=== PATIENT | male | born 1930 | race Caucasian/White ===

== ENCOUNTER 2020-02-22 14:28 | Inpatient (IN) | payer MEDICARE, OTHER ==
[2020-02-22 15:02] LABS: #Eosinphils 0.1 thou/uL (0.0-0.7); #Lymphocytes 0.9 thou/uL (1.20-3.40); #Monocytes 1.1 thou/uL (0.11-0.59); #Neutrophils 10.7 thou/uL (1.40-6.50); %Basophils 0.2 % (0.0-1.0); %Lymphocytes 7.3 % (21.0-51.0); %Monocytes 8.6 % (0.0-10.0); %Neutrophils 82.9 % (42.0-75.0); Hemoglobin 13.6 g/dL (14.0-18.0); Mean Corpuscular Volume 91.4 fL (78.0-98.0); Mean Platelet Volume 7.8 fL (7.4-10.4); Platelet Count 256 thou/uL (130-400); RBC Distribution Width 17.1 % (11.5-14.5); Red Blood Cell (RBC) Count 4.26 mill/uL (4.70-6.10); White Blood Cell (WBC) Count 12.9 thou/uL (4.8-10.8)
--- NOTE | 2020-02-22 15:15 | RAD ---
EXAM: CHEST ONE VIEW HISTORY: Atrial fibrillation with RVR. Runs of V. tach COMPARISON: None FINDINGS: Cardiac silhouette is magnified by projection. The pulmonary vasculature is within normal limits. A l arge hiatal hernia is seen in the lower mediastinum with linear densities at the left lung base probably related to atelectasis. No consolidation or pleural fluid is appreciated. Vascular calcifica tions are seen in the thoracic aorta. Incomplete visualization of a sclerotic density is seen in the proximal right humerus. IMPRESSION: 1. Large hiatal hernia with adjacent volume loss left lung base. 2. No acute cardiopulmonary process. 3. Sclerotic density proximal right humerus. Nonemergent radiographs right humerus are recommended.
[2020-02-22 15:27] LABS: ALT (SGPT) 20 U/L (8-55); AST (SGOT) 27 U/L (5-34); Albumin 3.3 g/dL (3.4-4.8); Alkaline Phosphatase 86 U/L (40-110); Anion Gap 14 mmol/L (10-20); BUN (Urea Nitrogen) 16 mg/dL (8.4-25.7); Bilirubin, Total 0.9 mg/dL (0.2-1.2); Calc. Creatinine Clearance 0 mL/min (70-130); Carbon Dioxide 20 mmol/L (23-31); Chloride 101 mmol/L (98-107); Estimated GFR-MDRD 69; Globulin 2.5 g/dL (2.4-3.5); Glucose 129 mg/dL (83-110); Potassium 4.4 mmol/L (3.5-5.1); Protein, Total 5.8 g/dL (5.8-8.1); Sodium 131 mmol/L (136-145)
[2020-02-22 15:50] LABS: Bilirubin Negative (Negative); Blood, Urine 3+ (Negative); Clarity Turbid (Clear); Glucose, Urine (Dipstick) Normal (Negative); Leukocyte 500 Leu/uL (Negative); Nitrite 2+ (Negative); Protein, Urine (Dipstick) 50 mg/dL (Neg-Trace); RBC/HPF Greater than 50 HPF (0-3); Squamous Epithelial None Seen HPF (0-3); WBC/HPF Greater than 50 HPF (0-3)
[2020-02-22 15:59] LABS: Bacteria/HPF 2+ HPF (None Seen); Yeast-Hyphae 1+ HPF (None Seen)
[2020-02-22] MEDS ORDERED: cefTRIAXone\\ROCEPHIN 2 GM VIAL ONE (16:24)
[2020-02-22 16:34] LABS: CKMB 2.6 ng/mL (0-6.6)
[2020-02-22] MEDS ORDERED: Vancomycin 1.5 GRAM/300 ML BAG 1.5 GM in Premix Bag 1 BAG IVPB SCH (17:15)
--- NOTE | 2020-02-22 18:23 | HP ---
PRIMARY CARE PHYSICIAN: Dr. Mary Gutierrez in [facility] and [facility] in [place]. CHIEF COMPLAINT: Shortness of breath. HISTORY OF PRESENT ILLNESS: The history of present illness is extremely limited as the patient may have some either early dementia or cognitive difficulties that he is unable to give me any details, but when I talked to him, he tells me that his life has been in turmoil since his and he says that his son recognized that he needed medical attention. He tells me that his son is a doctor and apparently, it sounds like had him admitted into inpatient rehab or to a intermediate facility. He says that he had noted some shortness of breath there and then they brought him to the emergency room. In the ER, he was found to be in atrial fibrillation with rapid ventricular response and he also was found to have a urinary tract infection and is being admitted for this. Apparently, he has a previous history of atrial fibrillation. He denies having any chest pain. No difficulty breathing now. No nausea, no vomiting, no abdominal pain, no dysuria or frequency. He is a bit confused. He knows where he is, but he had to look on the television screen to see the [facility] where he apparently read it off, but thinks it is the month of June, but he was correct on it being 2019. REVIEW OF SYSTEMS: Negative except for that mentioned in the history of present illness. PAST MEDICAL HISTORY: Significant for atrial fibrillation, BPH, sleep apnea, and varicella encephalitis. PAST SURGICAL HISTORY: He has had a radical prostatectomy. ALLERGIES: TO AMOXICILLIN. SOCIAL HISTORY: He is a nonsmoker and nondrinker. He is , has 2 children. FAMILY HISTORY: Negative for any heritable diseases. CURRENT MEDICATIONS: Taken from the emergency room records and include: 1. Aspirin 81 mg daily. 2. Atorvastatin 40 mg daily. 3. Clonidine 0.1 mg q.6 as needed. 4. Docusate sodium 100 mg as needed. 5. Fluoxetine 20 mg daily. 6. Lisinopril 5 mg daily. 7. Metoprolol succinate extended release 100 mg 1/2 tablet daily. 8. Flomax 0.4 mg daily. 9. Xarelto 20 mg once a day. PHYSICAL EXAMINATION: GENERAL: He is alert and oriented. He appears to be in no acute distress. He is well developed and well nourished. VITAL SIGNS: Blood pressure was 105/64, heart rate 118, respiratory rate of 18, temperature, he is afebrile. HEENT: Pupils are equal, round, and reactive. Extraocular muscles are intact. His sclerae are anicteric. Throat, no erythema, no exudates. NECK: No adenopathy. No bruits. LUNGS: Clear to auscultation. There is no wheezing. No rales. No rhonchi. CARDIOVASCULAR: His heart rate is irregular. There are no murmurs or clicks. No rubs. No S3 or S4. ABDOMEN: Soft, nontender, and nondistended. Positive for bowel sounds. No rebound. No guarding. No organomegaly. EXTREMITIES: There is no clubbing or cyanosis. No edema. NEUROLOGIC: His muscle strength is 5/5 in both his upper and lower extremities. There is no skin change, no rash. LABORATORY AND DIAGNOSTIC DATA: White blood cell count is 12.9, hemoglobin is 13.6, hematocrit is 39, and platelet count is 256. Sodium is 131, potassium is 4.4, chloride is 101, CO2 is 20, BUN is 16, creatinine is 1.02, glucose is 129. Troponin is 0.029. Urinalysis, the clarity is turbid, there was 2+ nitrites and greater than 50 wbc's. ASSESSMENT: This is a pleasant 89-year-old gentleman, who presents to the emergency room with hypotension, elevated white blood cell count, and also in atrial fibrillation and rapid ventricular response. 1. For the atrial fibrillation, his blood pressure is marginal. We will give a dose of digoxin due to his low blood pressure and reassess. 2. Urinary tract infection. He has been given a dose of Rocephin as well as vancomycin in the ER. We will continue Rocephin and follow up on the urine culture results. 3. Hypotension. This is likely due to volume depletion. We will reassess. After he has been adequately hydrated, it appears as his blood pressure has been recovering and we will need to obtain further information regarding the patient's history as it is very limited and see if this will impact further in his care. Job ID: [id number]
[2020-02-22 18:27] LABS: Troponin I Less than 0.010 ng/mL (< 0.028)
[2020-02-22] MEDS ORDERED: Digoxin 0.5 MG/2 ML AMP SLOW IVP SCH ×2 (20:00→22:00)
[2020-02-22 21:21] LABS: Troponin I Less than 0.010 ng/mL (< 0.028)
[2020-02-22] MEDS: Famotidine 20 MG TAB PO SCH (22:00)
[2020-02-22] MEDS: Atorvastatin Calcium 40 MG TAB PO SCH (22:00)
[2020-02-22 22:15] VITALS: BMI 33.2
[2020-02-23 04:24] LABS: #Basophils 0.1 thou/uL (0.0-0.2); #Eosinphils 0.5 thou/uL (0.0-0.7); #Lymphocytes 0.9 thou/uL (1.20-3.40); #Monocytes 1.2 thou/uL (0.11-0.59); #Neutrophils 8.8 thou/uL (1.40-6.50); %Basophils 0.6 % (0.0-1.0); %Eosinophils 4.4 % (0.0-10.0); %Lymphocytes 7.6 % (21.0-51.0); %Monocytes 10.2 % (0.0-10.0); %Neutrophils 77.3 % (42.0-75.0); Hemoglobin 12.3 g/dL (14.0-18.0); Mean Corpuscular HGB CONC 34.7 g/dL (32.0-36.0); Mean Corpuscular Hemoglobin 32.3 pg (27.0-31.0); Mean Platelet Volume 7.6 fL (7.4-10.4); Platelet Count 238 thou/uL (130-400); RBC Distribution Width 17.1 % (11.5-14.5); White Blood Cell (WBC) Count 11.3 thou/uL (4.8-10.8)
[2020-02-23 04:37] LABS: Anion Gap 13 mmol/L (10-20); BUN (Urea Nitrogen) 11 mg/dL (8.4-25.7); Calc. Creatinine Clearance 70 mL/min (70-130); Calcium 7.4 mg/dL (7.8-10.44); Carbon Dioxide 14 mmol/L (23-31); Chloride 107 mmol/L (98-107); Estimated GFR-MDRD 86; Glucose 98 mg/dL (83-110); Potassium 4.6 mmol/L (3.5-5.1); Sodium 129 mmol/L (136-145)
[2020-02-23] MEDS: Rivaroxaban 10 MG TAB PO SCH (06:12)
[2020-02-23] MEDS: Saccharomyces boulardii 250 MG CAP PO SCH (09:00)
[2020-02-23] MEDS: Tamsulosin HCl 0.4 MG CAP PO SCH (09:00)
[2020-02-23] MEDS: Aspirin 81 mg Enteric Coated Tablet PO SCH (09:00)
[2020-02-23] MEDS ORDERED: Prevnar 13-Val Conj/PF 0.5 ML SYRINGE IM ONE (09:00)
[2020-02-23] MEDS: Famotidine 20 MG TAB PO SCH ×2 (09:00→20:18)
--- NOTE | 2020-02-23 11:20 | PDOC.HOSPP ---
- Subjective Encounter Date: 02/23/20 Encounter Time: 10:00 Subjective: no chest pain or sob or palp is wanting to go home (came from rehab) - Objective Vital Signs & Weight: Vital Signs (12 hours) Temp Pulse Resp BP Pulse Ox 02/23/20 07:42 98.4 F 79 20 109/69 95 02/23/20 07:40 96 02/23/20 04:00 98.8 F 98 18 110/55 L 97 02/22/20 23:55 122 H Weight Weight 176 lb I&O: 02/22/20 02/23/20 02/24/20 06:59 06:59 06:59 Intake Total 100 Output Total 400 1450 Balance -400 -1350 Result Diagrams: 02/23/20 03:48 02/23/20 03:48 Hospitalist ROS - Medication Medications: Active Medications Generic Name Dose Route Start Last Admin Trade Name Freq PRN Reason Stop Dose Admin Aspirin 81 mg 02/23/20 09:00 02/23/20 09:00 Ecotrin PO 81 mg DAILY APRIL Administration Atorvastatin Calcium 40 mg 02/22/20 21:00 02/22/20 22:00 Lipitor PO 40 mg HS APRIL Administration Famotidine 20 mg 02/22/20 21:00 02/23/20 09:00 Pepcid PO 20 mg BID APRIL Administration Metoprolol Succinate 50 mg 02/23/20 09:00 02/23/20 09:00 Toprol Xl PO 50 mg DAILY APRIL Administration Rivaroxaban 20 mg 02/23/20 06:00 02/23/20 06:12 Xarelto PO 20 mg 0600 APRIL Administration Saccharomyces Boulardii 250 mg 02/23/20 09:00 02/23/20 09:00 Florastor PO 250 mg DAILY APRIL Administration Tamsulosin HCl 0.4 mg 02/23/20 09:00 02/23/20 09:00 Flomax PO 0.4 mg DAILY APRIL Administration - Exam General Appearance: awake alert Eye: PERRL, anicteric sclera ENT: no oropharyngeal lesions, dry oral mucosa Neck: supple, no JVD Heart: irregular, murmur present Respiratory: no wheezes, no rales Gastrointestinal: soft, non-tender, non-distended, normal bowel sounds Extremities: no cyanosis, no edema Neurological: cranial nerve grossly intact, no focal deficits Hosp A/P (1) Atrial fibrillation with RVR Code(s): I48.91 - UNSPECIFIED ATRIAL FIBRILLATION Status: Acute (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 - ZOSTER ENCEPHALITIS Status: Acute (3) UTI (urinary tract infection) Status: Acute Qualifiers: Urinary tract infection type: catheter-associated UTI Indwelling urinary catheter type: indwelling urethral catheter Encounter type: subsequent encounter Qualified Code(s): T83.511D - Infection and inflammatory reaction due to indwelling urethral catheter, subsequent encounter; N39.0 - Urinary tract infection, site not specified (4) BPH (benign prostatic hyperplasia) Code(s): N40.0 - BENIGN PROSTATIC HYPERPLASIA WITHOUT LOWER URINRY TRACT SYMP Status: Chronic Qualifiers: Lower urinary tract symptom presence: symptoms present (5) ELVIN (obstructive sleep apnea) Code(s): G47.33 - OBSTRUCTIVE SLEEP APNEA (ADULT) (PEDIATRIC) Status: Chronic (6) Physical deconditioning Code(s): R53.81 - OTHER MALAISE Status: Acute - Plan has off and on afib with rvr with chronic h/o afib add cardizem 30mg ac hs, is on toprol xl 50mg and xarelto recent hospitalization at [facility] [place] for herpes zoster encephalitis and has finished 2 week course of antiviral per son and was transfered to inpt rehab here has not ambulated at rehab yet per son has underlying mild cognitive impairment, was independently amb before encephalitis per son on asp, lipitor, flomax urine culture is growing s.aureus likely colonized? with chronic indwelling mackenzie hemostable encourage po intake, PT/OT to mobilize as tolerated dc plan is to transfer back to rehab once rvr is controlled
[2020-02-23] MEDS ORDERED: cefTRIAXone\\ROCEPHIN 1 GM in Sodium Chloride 0.9% 100 ML IVPB SCH (17:00)
--- NOTE | 2020-02-23 19:10 | CON ---
DATE OF CONSULTATION: HISTORY: Amilcar Santana is an 89-year-old white male, who lives in [place]. He apparently had a previous history of atrial fibrillation, although I am not certain if that it is chronic. He states that he was placed on digoxin and also Xarelto because of the atrial fibrillation. His son apparently noted that he was failing at home when picked him up, brought him to the emergency room here. He is found to be in atrial fibrillation with fast ventricular response and was admitted for further evaluation. He denies ever having any chest discomfort or palpitations. However, he does note intermittent episodes of shortness of breath. He is somewhat of a poor historian. PAST MEDICAL HISTORY: Atrial fibrillation, benign prostatic hypertrophy, varicella encephalitis, and sleep apnea. He also states that he has a urinary tract infection 1 or 2 weeks ago and was placed on antibiotics as an outpatient. OPERATIONS: Radical prostatectomy. MEDICATIONS: 1. Aspirin 81 mg daily. 2. Atorvastatin 40 mg at bedtime. 3. Tums p.r.n. 4. Catapres 0.1 mg q.6 hours p.r.n. 5. Digoxin 0.25 q.a.m. 6. Benadryl 25 q.6 hours p.r.n. 7. Fluoxetine 40 mg daily. 8. Lactulose 20 g t.i.d. p.r.n. 9. Metoprolol 25 mg daily. 10. MiraLAX 17 g daily. 11. Xarelto 20 mg q.p.m. 12. Florastor 250 mg b.i.d. ALLERGIES: AMOXICILLIN. SOCIAL HISTORY: Does not smoke or drink. FAMILY HISTORY: Negative for coronary artery disease. REVIEW OF SYSTEMS: Otherwise, unremarkable. PHYSICAL EXAMINATION: VITAL SIGNS: 109/69 and pulse of 79. HEENT: PERRL. NECK: Supple. CHEST: Clear. CARDIAC: S1 and S2 normal without any S3, S4, or murmurs. Carotid upstrokes normal without bruits. ABDOMEN: Normal bowel sounds without tenderness or organomegaly. EXTREMITIES: Revealed no clubbing, cyanosis, or edema. NEUROLOGIC: Grossly intact. SKIN: Warm and dry. LABORATORY DATA: EKG on admission revealed atrial fibrillation with rapid ventricular response of 129 per minute. Possible old inferior infarction. Chest x-ray revealed a large hiatal hernia with no acute process. Hemoglobin 12.3, hematocrit 35.3, white count 11,300, and platelets 238,000. Sodium 129, potassium 4.6, chloride 107, carbon dioxide 14, BUN 11, and creatinine 0.84. Troponin I 0.029, CK-MB 2.6. BNP 25.6. Urine revealed 3+ blood, 2+ nitrite, greater than 50 rbc's, greater than 50 wbc's, and 2+ bacteria. Blood cultures were negative x3. Urine culture reveals greater than 100,000 staph species with ID and sensitivity to follow. Echocardiogram revealed ejection fraction of 55% to 60% with left atrial enlargement, moderate mitral regurgitation, moderate calcification of the anterior leaflet of the mitral valve, aortic valve sclerosis, mild aortic regurgitation and mild tricuspid regurgitation. IMPRESSION: 1. Atrial fibrillation with fast ventricular response. It is unclear if this is chronic or paroxysmal. 2. Hypercholesterolemia. 3. Urinary tract infection with staphylococcal species. 4. Hypotension earlier today. PLAN: At the present time after additional doses of 0.25 IV digoxin at 11:00 p.m. last night and at midnight last night, his heart rate appears to be under control. No digoxin level was obtained. I imagine that he probably has chronic atrial fibrillation and may have had a subtherapeutic digoxin level. I will obtain a digoxin level in the morning as well as fasting lipid profile. Job ID: [id number] [facility]
[2020-02-23] MEDS: Atorvastatin Calcium 40 MG TAB PO SCH (20:19)
[2020-02-23] MEDS: Acetaminophen 325 MG TAB PO PRN (20:19)
[2020-02-24 04:35] LABS: Cardiac Risk 1.9 (Less than 4.5)
[2020-02-24 05:11] LABS: Digoxin 0.29 ng/mL (0.8-2.0)
[2020-02-24] MEDS: Rivaroxaban 10 MG TAB PO SCH (05:43)
[2020-02-24] MEDS: Aspirin 81 mg Enteric Coated Tablet PO SCH (08:56)
[2020-02-24] MEDS: Tamsulosin HCl 0.4 MG CAP PO SCH (08:57)
[2020-02-24] MEDS: Famotidine 20 MG TAB PO SCH ×2 (08:57→21:18)
[2020-02-24] MEDS: Saccharomyces boulardii 250 MG CAP PO SCH (08:57)
[2020-02-24 10:17] LABS: Hemoglobin 11.8 g/dL (14.0-18.0); Platelet Count 258 thou/uL (130-400)
--- NOTE | 2020-02-24 10:17 | PDOC.HOSPP ---
- Subjective Encounter Date: 02/24/20 Encounter Time: 08:00 Subjective: awake, had a bath this am ate his breakfast, no c/o palp or sob or chest pain not oriented - Objective Vital Signs & Weight: Vital Signs (12 hours) Temp Pulse Resp BP Pulse Ox 02/24/20 08:00 98.9 F 94 18 100/65 94 L 02/24/20 04:16 98.1 F 82 16 90/48 L 98 Weight Admit Weight 176 lb Weight 176 lb I&O: 02/23/20 02/24/20 02/25/20 06:59 06:59 06:59 Intake Total 1560 Output Total 400 3690 Balance -400 -2130 Result Diagrams: 02/23/20 03:48 02/23/20 03:48 Hospitalist ROS - Medication Medications: Active Medications Generic Name Dose Route Start Last Admin Trade Name Freq PRN Reason Stop Dose Admin Acetaminophen 650 mg 02/22/20 20:00 02/23/20 20:19 Tylenol PO 650 mg Q4H PRN Administration Headache/Fever/Mild Pain (1-3) Aspirin 81 mg 02/23/20 09:00 02/24/20 08:56 Ecotrin PO 81 mg DAILY APRIL Administration Famotidine 20 mg 02/22/20 21:00 02/24/20 08:57 Pepcid PO 20 mg BID APRIL Administration Rivaroxaban 20 mg 02/23/20 06:00 02/24/20 05:43 Xarelto PO 20 mg 0600 APRIL Administration Saccharomyces Boulardii 250 mg 02/23/20 09:00 02/24/20 08:57 Florastor PO 250 mg DAILY APRIL Administration Tamsulosin HCl 0.4 mg 02/23/20 09:00 02/24/20 08:57 Flomax PO 0.4 mg DAILY APRIL Administration - Exam General Appearance: awake alert Eye: PERRL, anicteric sclera ENT: no oropharyngeal lesions, moist mucosa Neck: supple, no JVD Heart: no murmur, irregular Respiratory: no wheezes, no rales Gastrointestinal: soft, non-tender, non-distended, normal bowel sounds Extremities: no cyanosis, no edema Neurological: cranial nerve grossly intact, no focal deficits Hosp A/P (1) Atrial fibrillation with RVR Code(s): I48.91 - UNSPECIFIED ATRIAL FIBRILLATION Status: Chronic (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 - ZOSTER ENCEPHALITIS Status: Acute (3) UTI (urinary tract infection) Status: Acute Qualifiers: Urinary tract infection type: catheter-associated UTI Indwelling urinary catheter type: indwelling urethral catheter Encounter type: subsequent encounter Qualified Code(s): T83.511D - Infection and inflammatory reaction due to indwelling urethral catheter, subsequent encounter; N39.0 - Urinary tract infection, site not specified (4) BPH (benign prostatic hyperplasia) Code(s): N40.0 - BENIGN PROSTATIC HYPERPLASIA WITHOUT LOWER URINRY TRACT SYMP Status: Chronic Qualifiers: Lower urinary tract symptom presence: symptoms present (5) ELVIN (obstructive sleep apnea) Code(s): G47.33 - OBSTRUCTIVE SLEEP APNEA (ADULT) (PEDIATRIC) Status: Chronic (6) Physical deconditioning Code(s): R53.81 - OTHER MALAISE Status: Acute - Plan has off and on afib with rvr with chronic h/o afib is on digoxin 0.25mg, toprol xl 25mg and xarelto, sbp around 90-100 recent hospitalization at [facility] for herpes zoster encephalitis and has finished 2 week course of antiviral per son and was transfered to inpt rehab here has not ambulated at rehab yet per son has underlying mild cognitive impairment, was independently amb before encephalitis per son on asp, lipitor, flomax urine culture is growing MRSA likely colonized? with indwelling mackenzie x2 weeks hemostable encourage po intake, PT/OT to mobilize as tolerated dc plan is to transfer back to rehab once rvr is controlled d/w son and gave a full update today and yesterday as well.
[2020-02-24] MEDS: Digoxin 0.25 MG TAB PO SCH (11:29)
[2020-02-24] MEDS: Vancomycin HCl 1.25 GM in Sodium Chloride 0.9% 250 ML 250 ML IVPB SCH (11:29)
[2020-02-24] MEDS ORDERED: Digoxin 0.25 MG TAB PO SCH (15:00)
--- NOTE | 2020-02-24 19:15 | CON ---
DATE OF CONSULTATION: 02/24/2020 REASON FOR CONSULTATION: Possible urosepsis. HISTORY OF PRESENT ILLNESS: An 89-year-old with history of atrial fibrillation, sleep apnea, and prior upper GI bleed, who was admitted recently to [facility] in [place] because of confusional state and falls at home. They did an MRI of the head and lumbar puncture and the patient was diagnosed with varicella zoster encephalitis. He was given acyclovir, cefepime, and Flagyl and improved mentally, and cefepime and Flagyl were discontinued and he was transferred to [facility] on rivaroxaban and tamsulosin. The patient had completed his antiviral treatment and who had been on ciprofloxacin presumably for a urinary tract infection. He progressed as expected except that he developed some abnormal movements and then tachycardia with some cough and he was transferred to [facility]. In the emergency room, the patient denied any headaches. No visual symptoms, sore throat, odynophagia, or dysphagia. No back pain. No sputum production. No chest pain or dyspnea. No abdominal pain or diarrhea. No genitourinary symptoms except for Rose catheter which had been present from [facility]. Initial impression was AFib and possible urosepsis. He was given Rocephin and vancomycin. Currently, Mr. Santana is awake. He is in the tele area. He is a little bit confused. He has a difficult time with recollection. He knew his name and eventually realized that he was in [facility]. He was unable to provide me an accurate account of his recent events. MEDICAL HISTORY: 1. AFib. 2. BPH. 3. Prostatectomy. 4. Upper GI bleed. 5. GERD. 6. Recent diagnosis of varicella zoster encephalitis. ALLERGIES: AMOXICILLIN, UNKNOWN REACTION; TOPIRAMATE, UNKNOWN REACTION. CURRENT MEDICATION LIST: 1. P.r.n. medications. 2. Lipitor. 3. Lanoxin. 4. Pepcid. 5. Toprol. 6. Xarelto. 7. Florastor. 8. Vancomycin. FAMILY HISTORY: Noncontributory. SOCIAL HISTORY: Never smoker. Had been living by himself until this encephalitic process developed that led to admission to [facility] in [place]. PHYSICAL EXAMINATION: VITAL SIGNS: T-max 98.9, blood pressure 110/60, pulse 69, respirations 17, and O2 saturation 96. SKIN: Areas of stage II pressure ulceration with surrounding erythema in the presacral region. Has a peripheral IV access and Rose catheter in place. No lymphadenopathy. HEENT: Ocular movements conjugate. Conjunctivae normal. Oral cavity with dentures. No oral mucosal lesions. NECK: Supple. No jugular vein distention or carotid bruits. LUNGS: A few faint inspiratory crackles in the left side base, which clear with deep breathing. No wheezing. HEART: S1 and S2. Regular rate. No S3 or S4. ABDOMEN: Soft, not distended or tender. No ascites. No bladder distention. Rose catheter with no abnormalities. EXTREMITIES: No joint inflammatory activity. Able to move all extremities equally. No edema. Pulses 1+ in the dorsalis pedis. Plantar responses are flexor. No evidence of clonus. NEUROLOGIC: Awake, knows his name. A little bit of difficulty with other elements of orientation and recall is somewhat limited. Speech appears to be relatively preserved. He does have a little bit of word-finding problems. LABORATORY STUDIES: White cell count was 12.9, now is 11.3; hemoglobin is down to 11.8; MCV 93; platelets 258; neutrophil percentage down to 77%; and eosinophils 4.4%. Chemistry with a creatinine of 0.83, sodium 129, and potassium 4.6. Liver profile normal. BNP 25. Albumin 3.3. Urinalysis greater than 50 wbc's. Microbiology with MRSA in the urine culture. Three sets of blood cultures negative. Chest x-ray without infiltrates. Echocardiogram with normal EF and some calcification in the valvular apparatus. ASSESSMENT: 1. Atrial fibrillation. 2. Benign prostatic hypertrophy. 3. Recent diagnosis of varicella zoster encephalitis, made at [facility] in [place], which led to transfer to [facility]. 4. Development of tachycardia associated with atrial fibrillation and rapid ventricular response and the concern with urosepsis. DISCUSSION: The differential diagnosis includes urosepsis with or without bacteremia, urinary obstruction with nephrolithiasis needs to be considered and ruled out. He has not had a fever since admission. This is the 3rd day and had a little bit of neutrophilia, and I have a low pretest likelihood for COVID-19 and again I do not think he merits testing. Continue vancomycin, eventually transition to oral Bactrim for discharge planning. Voiding trial would be recommended if the CT stone protocol is okay. He may need a few days on Flomax before that can be attempted. Job ID: [id number]
--- NOTE | 2020-02-24 19:40 | CT ---
CT Stone Protocol History: Urosepsis Comparison: None. Findings: Moderate left and small right layering pleural effusions. Compressive atelectasis in the estefanía ng bases. Large hiatal hernia. Normal proximal small bowel rotation. Mild distention of the gallbladder without pericholecystic stra nding. Mild thickening of the body left adrenal gland. The aortoiliac contour is nonaneurysmal. Large amount stool within the rectum. Surgical clips in the pelvis bilaterally likely from prostatectomy. Urinary bladder is partially decompressed with a Rose catheter. Moderate stool burden throughout the colon. No free intraperitoneal gas or fluid. Likely left parapel shea cysts. No acute osseous abnormality. Impression: 1. No nephroureterolithiasis. 2. Large volume stool within the rectal vault. Disimpaction may be beneficial. 3. Likely left parapelvic cyst and much less likely hydronephrosis. 4. Large sliding hiatal hernia. 5. Moderate left and small right pleural effusion.
[2020-02-24] MEDS: Atorvastatin Calcium 20 MG TAB PO SCH (21:18)
[2020-02-24] MEDS: Acetaminophen 325 MG TAB PO PRN (21:19)
[2020-02-25] MEDS: Rivaroxaban 10 MG TAB PO SCH (05:46)
[2020-02-25] MEDS: Aspirin 81 mg Enteric Coated Tablet PO SCH (07:13)
[2020-02-25] MEDS: Digoxin 0.25 MG TAB PO SCH (07:14)
[2020-02-25] MEDS: Tamsulosin HCl 0.4 MG CAP PO SCH (07:14)
[2020-02-25] MEDS: Famotidine 20 MG TAB PO SCH ×2 (07:14→19:53)
[2020-02-25] MEDS: Saccharomyces boulardii 250 MG CAP PO SCH (07:14)
--- NOTE | 2020-02-25 10:58 | PDOC.HOSPP ---
- Subjective Encounter Date: 02/25/20 Encounter Time: 09:45 Subjective: awake, responds well to verbal stimuli not in distress, ate his breakfast is watching tv - Objective Vital Signs & Weight: Vital Signs (12 hours) Temp Pulse Resp BP Pulse Ox 02/25/20 07:42 96 02/25/20 07:40 99.7 F H 93 17 110/58 L 96 02/25/20 07:14 105 H 02/25/20 03:47 99.5 F 105 H 20 109/75 98 02/25/20 00:00 99 20 121/73 Weight Admit Weight 176 lb Weight 176 lb I&O: 02/24/20 02/25/20 02/26/20 06:59 06:59 06:59 Intake Total 1560 840 Output Total 3690 1850 Balance -2510 1010 Result Diagrams: 02/24/20 09:38 02/24/20 09:38 Hospitalist ROS - Medication Medications: Active Medications Generic Name Dose Route Start Last Admin Trade Name Freq PRN Reason Stop Dose Admin Acetaminophen 650 mg 02/22/20 20:00 02/24/20 21:19 Tylenol PO 650 mg Q4H PRN Administration Headache/Fever/Mild Pain (1-3) Aspirin 81 mg 02/23/20 09:00 02/25/20 07:13 Ecotrin PO 81 mg DAILY APRIL Administration Atorvastatin Calcium 20 mg 02/24/20 21:00 02/24/20 21:18 Lipitor PO Not Given HS APRIL Digoxin 0.25 mg 02/24/20 09:00 02/25/20 07:14 Lanoxin PO 0.25 mg DAILY APRIL Administration Famotidine 20 mg 02/22/20 21:00 02/25/20 07:14 Pepcid PO 20 mg BID APRIL Administration Vancomycin HCl 1.25 gm/ Sodium 250 mls @ 166.67 mls/hr 02/24/20 12:00 11:29 Chloride IVPB 250 mls 1200 APRIL Administration Metoprolol Succinate 25 mg 02/24/20 09:00 02/25/20 07:14 Toprol Xl PO 25 mg DAILY APRIL Administration Rivaroxaban 20 mg 02/23/20 06:00 02/25/20 05:46 Xarelto PO 20 mg 0600 APRIL Administration Saccharomyces Boulardii 250 mg 02/23/20 09:00 02/25/20 07:14 Florastor PO 250 mg DAILY APRIL Administration Tamsulosin HCl 0.4 mg 02/23/20 09:00 02/25/20 07:14 Flomax PO 0.4 mg DAILY APRIL Administration - Exam General Appearance: awake alert Eye: PERRL, anicteric sclera ENT: no oropharyngeal lesions, moist mucosa Neck: supple, no JVD Heart: no murmur, irregular Respiratory: no wheezes, no rales Gastrointestinal: soft, non-tender, non-distended, normal bowel sounds Extremities: no cyanosis, no edema Neurological: cranial nerve grossly intact, no focal deficits Hosp A/P (1) Atrial fibrillation with RVR Code(s): I48.91 - UNSPECIFIED ATRIAL FIBRILLATION Status: Chronic (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 - ZOSTER ENCEPHALITIS Status: Acute (3) UTI (urinary tract infection) Status: Acute Qualifiers: Urinary tract infection type: catheter-associated UTI Indwelling urinary catheter type: indwelling urethral catheter Encounter type: subsequent encounter Qualified Code(s): T83.511D - Infection and inflammatory reaction due to indwelling urethral catheter, subsequent encounter; N39.0 - Urinary tract infection, site not specified (4) BPH (benign prostatic hyperplasia) Code(s): N40.0 - BENIGN PROSTATIC HYPERPLASIA WITHOUT LOWER URINRY TRACT SYMP Status: Chronic Qualifiers: Lower urinary tract symptom presence: symptoms present (5) ELVIN (obstructive sleep apnea) Code(s): G47.33 - OBSTRUCTIVE SLEEP APNEA (ADULT) (PEDIATRIC) Status: Chronic (6) Physical deconditioning Code(s): R53.81 - OTHER MALAISE Status: Acute - Plan afib is rate controlled with occasional spikes in rate is on digoxin 0.25mg, toprol xl 25mg and xarelto, sbp around 90-100 recent hospitalization at [facility] for herpes zoster encephalitis and has finished 2 week course of antiviral per son and was transfered to inpt rehab here has not ambulated at rehab yet per son has underlying mild cognitive impairment, was independently amb before encephalitis per son on asp, lipitor, flomax urine culture is growing MRSA likely colonized? with indwelling mackenzie x2 weeks hemostable, d/w and is ok for discharge. encourage po intake, PT/OT to mobilize as tolerated dc plan is to transfer back to rehab today if approved d/w son and gave a full update today.
[2020-02-25] MEDS: Vancomycin HCl 1.25 GM in Sodium Chloride 0.9% 250 ML 250 ML IVPB SCH (12:06)
[2020-02-25] MEDS: Acetaminophen 325 MG TAB PO PRN (19:24)
[2020-02-25] MEDS: Atorvastatin Calcium 20 MG TAB PO SCH (19:53)
[2020-02-26] MEDS: Rivaroxaban 10 MG TAB PO SCH (05:35)
[2020-02-26] MEDS ORDERED: Sodium Chloride 0.9% 10 ML ONE (08:08)
--- NOTE | 2020-02-26 08:21 | PQF ---
CLINICAL DOCUMENTATION IMPROVEMENT CLARIFICATION FORM: ICD-10 Updated PLEASE DO AN ADDENDUM TO THE PROGRESS NOTE WITH ANY DOCUMENTATION UPDATES OR ADDITIONS AND CARRY THROUGH TO DC SUMMARY. THANK YOU. DATE: 02/25/20 ATTN: DR. BLOOM Please exercise your independent, professional judgment in responding to the clarification form. Clinical indicators are provided on the bottom of this form for your review Please check appropriate box(s) to clarify if the following diagnosis has been ruled in or ruled out: "SEPSIS" [ x ] Ruled in diagnosis [ x ] Continue to treat [ ] Resolved [ ] Ruled out diagnosis [ ] Improving [ ] Cannot rule out diagnosis [ ] Other diagnosis [ ] Unable to determine In addition, please specify: Present on Admission (POA): [x ] Yes [ ] No [ ] Unable to determine For continuity of documentation, please document condition throughout progress notes and discharge summary. Thank You. CLINICAL INDICATORS - SIGNS / SYMPTOMS / LABS / RESULTS AND LOCATION IN MR ER NOTE: "SEPSIS" HR 118RR 23 BP 84-67 WBC 02/21: 12.9 RISKS: UTI FROM KOHLER CATHETER (ER NOTE) TREATMENT: IV FLUIDS (ER) IV VANCOMYCIN (ER) IV ROCEPHIN (ER) ID CONSULT (02/23) BLOOD AND URINE CULTURES 02/21 [employer] Win[employer] (This form is maintained as a part of the permanent medical record) 2014 [employer]. All Rights Reserved CHRISTIANO [email or web address] [facility]
[2020-02-26] MEDS: Digoxin 0.25 MG TAB PO SCH (09:08)
[2020-02-26] MEDS: Saccharomyces boulardii 250 MG CAP PO SCH (09:08)
[2020-02-26] MEDS: Aspirin 81 mg Enteric Coated Tablet PO SCH (09:08)
[2020-02-26] MEDS: Famotidine 20 MG TAB PO SCH (09:08)
[2020-02-26] MEDS: Tamsulosin HCl 0.4 MG CAP PO SCH (09:14)
[2020-02-26 09:26] VITALS: TEMP 96.1
--- NOTE | 2020-02-26 11:57 | PDOC.HOSPP ---
- Subjective Encounter Date: 02/26/20 Encounter Time: 09:00 Subjective: awakens easily, no sob or chest pain or palp no new complaints - Objective Vital Signs & Weight: Vital Signs (12 hours) Temp Pulse Pulse Resp BP BP Pulse Ox 02/26/20 09:24 71 91/55 L 02/26/20 09:08 75 02/26/20 08:00 96.1 F L 75 18 111/59 L 95 02/26/20 04:00 98.2 F 86 16 97/54 L 98 Weight Admit Weight 176 lb Weight 176 lb I&O: 02/25/20 02/26/20 02/27/20 06:59 06:59 06:59 Intake Total 840 970 Output Total 1850 1550 Balance -1010 580 Result Diagrams: 02/24/20 09:38 02/24/20 09:38 Hospitalist ROS - Medication Medications: Active Medications Generic Name Dose Route Start Last Admin Trade Name Freq PRN Reason Stop Dose Admin Acetaminophen 650 mg 02/22/20 20:00 02/25/20 19:24 Tylenol PO 650 mg Q4H PRN Administration Headache/Fever/Mild Pain (1-3) Aspirin 81 mg 02/23/20 09:00 02/26/20 09:08 Ecotrin PO 81 mg DAILY APRIL Administration Atorvastatin Calcium 20 mg 02/24/20 21:00 02/25/20 19:53 Lipitor PO 20 mg HS APRIL Administration Digoxin 0.25 mg 02/24/20 09:00 02/26/20 09:08 Lanoxin PO 0.25 mg DAILY APRIL Administration Famotidine 20 mg 02/22/20 21:00 02/26/20 09:08 Pepcid PO 20 mg BID APRIL Administration Vancomycin HCl 1.25 gm/ Sodium 250 mls @ 166.67 mls/hr 02/24/20 12:00 12:06 Chloride IVPB 250 mls 1200 APRIL Administration Metoprolol Succinate 25 mg 02/24/20 09:00 02/26/20 09:08 Toprol Xl PO 25 mg DAILY APRIL Administration Rivaroxaban 20 mg 02/23/20 06:00 02/26/20 05:35 Xarelto PO 20 mg 0600 APRIL Administration Saccharomyces Boulardii 250 mg 02/23/20 09:00 02/26/20 09:08 Florastor PO 250 mg DAILY APRIL Administration Tamsulosin HCl 0.4 mg 02/23/20 09:00 02/26/20 09:14 Flomax PO 0.4 mg DAILY APRIL Administration - Exam Eye: PERRL, anicteric sclera ENT: no oropharyngeal lesions, moist mucosa Neck: supple, no JVD Heart: no murmur, irregular Respiratory: no wheezes, no rales Gastrointestinal: soft, non-tender, non-distended, normal bowel sounds Extremities: no cyanosis, no edema Neurological: cranial nerve grossly intact, no focal deficits Hosp A/P (1) Atrial fibrillation with RVR Code(s): I48.91 - UNSPECIFIED ATRIAL FIBRILLATION Status: Chronic (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 - ZOSTER ENCEPHALITIS Status: Acute (3) UTI (urinary tract infection) Status: Acute Qualifiers: Urinary tract infection type: catheter-associated UTI Indwelling urinary catheter type: indwelling urethral catheter Encounter type: subsequent encounter Qualified Code(s): T83.511D - Infection and inflammatory reaction due to indwelling urethral catheter, subsequent encounter; N39.0 - Urinary tract infection, site not specified (4) BPH (benign prostatic hyperplasia) Code(s): N40.0 - BENIGN PROSTATIC HYPERPLASIA WITHOUT LOWER URINRY TRACT SYMP Status: Chronic Qualifiers: Lower urinary tract symptom presence: symptoms present (5) ELVIN (obstructive sleep apnea) Code(s): G47.33 - OBSTRUCTIVE SLEEP APNEA (ADULT) (PEDIATRIC) Status: Chronic (6) Physical deconditioning Code(s): R53.81 - OTHER MALAISE Status: Acute - Plan afib is rate controlled with occasional spikes in rate and pvc's is on digoxin 0.25mg, toprol xl 25mg and xarelto, sbp around 90-100 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 with indwelling mackenzie x2 weeks hemostable, d/w and is ok for discharge on 02/24. encourage po intake, PT/OT to mobilize as tolerated dc plan is to transfer back to rehab today if approved
[2020-02-26 11:59] VITALS: BP 111/59
[2020-02-26 12:07] LABS: Vancomycin, Trough 7.5 ug/mL
--- NOTE | 2020-02-26 13:05 | DIS ---
DATE OF ADMISSION: 02/22/2020 DATE OF DISCHARGE: 02/26/2020 DISCHARGE DISPOSITION: Inpatient rehab. PRIMARY DISCHARGE DIAGNOSES: Atrial fibrillation with RVR, rate controlled; urinary tract infection with indwelling Rose catheter, growing MRSA; recent history of herpes zoster encephalitis; deconditioning; obstructive sleep apnea; benign prostatic hypertrophy. PROCEDURES DONE DURING HOSPITALIZATION: Chest x-ray done showed large hiatal hernia. No acute cardiopulmonary process was seen. CT stone protocol done showed no nephroureterolithiasis. There was large volume stool in the rectal vault. Large sliding hiatal hernia. Moderate left and small right pleural effusions were noted. Echo with 2D Doppler done showed EF of 55% to 60%, moderate mitral regurgitation. Urine culture grew MRSA, sensitive to sulfa, vancomycin, tetracycline, rifampin, nitrofurantoin, linezolid, gentamicin, and doxycycline. Blood cultures x2, no growth. H and H 11 and 34, platelet count 258. Had a white count of 12 on the day of admission. Total cholesterol 63, triglycerides 38, LDL 22, HDL 33, BUN 11, creatinine 0.8 on . INPATIENT CONSULT: Dr. Alcaraz for Cardiology, Dr. Alfaro for Infectious Disease. DISCHARGE MEDICATIONS: 1. Aspirin 81 mg p.o. daily. 2. Lipitor 40 mg p.o. at bedtime. 3. Digoxin 0.25 mg p.o. daily. 4. Fluoxetine 40 mg p.o. daily. 5. Toprol-XL 25 mg p.o. daily. 6. Xarelto 20 mg p.o. q.p.m. 7. MiraLAX 17 g daily. 8. Florastor 250 mg twice daily. 9. Bactrim double strength one tablet p.o. twice daily for 5 more days. 10. Flomax 0.4 mg p.o. daily. DISCHARGE PLAN: The patient to follow up with his primary care physician in 1 week. BRIEF COURSE DURING HOSPITALIZATION: The patient initially was sent over from inpatient rehab for increasing lethargy and shortness of breath. He was found to have urinary tract infection and atrial fibrillation with RVR. The patient's systolic blood pressure was low and was given IV digoxin. He is also on IV antibiotics for suspected urinary tract infection with indwelling Rose catheter for the last 2 weeks prior to arrival. The patient has had history of herpes zoster encephalitis three weeks back when was hospitalized at [facility] and was later discharged to inpatient rehab prior to coming here. He has had consultation with Dr. Alcaraz for Cardiology and Dr. Alfaro for Infectious Disease. The patient's urine culture grew MRSA. His atrial fibrillation was rate controlled. His systolic blood pressures runs between 100 and 110, limiting more aggressive medications. His digoxin levels were low and the dose was increased to 0.25 mg daily. He is also on Toprol-XL low dose. The patient has been placed on Flomax. His Rose catheter needs to be removed in the next 3 to 4 days at the inpatient rehab facility to prevent recurrent infection. Prior to discharge, he is beginning to eat well. The patient likely has underlying cognitive impairment, but responds well to verbal questions. He has issues with short-term memory. Throughout his stay, his son was given full updates. A total of 35 minutes was spent on discharge plan. Please see a [id number] documentation for the day of discharge on [employer]. Job ID: [id number]
--- NOTE | 2020-02-29 14:49 | EKG ---
Test Reason : Blood Pressure : / mmHG Vent. Rate : 129 BPM Atrial Rate : 138 BPM P-R Int : 000 ms QRS Dur : 082 ms QT Int : 320 ms P-R-T Axes : 000 001 -16 degrees QTc Int : 468 ms Atrial fibrillation with rapid ventricular response Inferior infarct , age undetermined Abnormal ECG Confirmed by ALFREDO EMERSON DO ([id number]), editor book AMY BOWER ([id number]) on 02/29/2020 2:48:48 PM Referred By: Confirmed By:ALFREDO EMERSON DO
== END 2020-02-26 11:45 | DRG 698 ==
LOC: ERS 14:28 → 2NO 17:22
PROVIDERS: ADMIT Internal Medicine; ATTEND Internal Medicine
DX: T83.511A Infection and inflammatory reaction due to indwelling urethral catheter, initial encounter (principal); A41.02 Sepsis due to Methicillin resistant Staphylococcus aureus; I48.20 Chronic atrial fibrillation, unspecified; N39.0 Urinary tract infection, site not specified; N40.0 Benign prostatic hyperplasia without lower urinary tract symptoms; Y84.6 Urinary catheterization as the cause of abnormal reaction of the patient, or of later complication, without mention of misadventure at the time of the procedure; G47.33 Obstructive sleep apnea (adult) (pediatric); E78.00 Pure hypercholesterolemia, unspecified; K21.9 Gastro-esophageal reflux disease without esophagitis; B95.62 Methicillin resistant Staphylococcus aureus infection as the cause of diseases classified elsewhere; F03.90 Unspecified dementia, unspecified severity, without behavioral disturbance, psychotic disturbance, mood disturbance, and anxiety; Z79.01 Long term (current) use of anticoagulants; Z88.8 Allergy status to other drugs, medicaments and biological substances; Z88.1 Allergy status to other antibiotic agents; Z79.82 Long term (current) use of aspirin; Z79.899 Other long term (current) drug therapy; I95.9 Hypotension, unspecified
CPT/HCPCS: 36415; 36416; 71045; 74176; 80048; 80053; 80061; 80162; 80202; 81003; 81015; 82553; 82565; 83605; 83880; 84484; 85014; 85018; 85025; 85049; 87040; 87077; 87086; 87186; 93005; 93306; 96361; 96365; 96366; J0696; J1160; J3370; J3490; J7050